=== PATIENT | male | born 1995 | race Two or more races ===

== ENCOUNTER 2022-02-28 14:58 | Emergency (ER) | payer OTHER ==
[~2022-02-28] VITALS: Ht 170.2 cm; Wt 142.9 kg
[2022-02-28 16:01] VITALS: BP 135/70
[2022-02-28] MEDS ORDERED: PRED20TA2 PO (16:57)
[2022-02-28] MEDS ORDERED: ACYC-161 PO (16:57)
== END 2022-02-28 17:09 | disposition home or self-care (01) ==
LOC: ER 14:58
DX: G51.0 Bell's palsy (principal)
CPT/HCPCS: 70450; 93005

== ENCOUNTER 2022-06-29 05:15 | Emergency (ER) | payer OTHER ==
[~2022-06-29] VITALS: Ht 170.2 cm; Wt 146.1 kg
[~2022-06-29 05:15] MED LIST: ACYC-161 PO; PRED20TA2 PO
[2022-06-29] MEDS ORDERED: KETOROLAC TROMETH 60MG/2ML VIAL IM ONE (08:15)
[2022-06-29 08:23] VITALS: BP 134/74
[2022-06-29] MEDS ORDERED: BACL10TA PO (08:48)
[2022-06-29] MEDS ORDERED: IBUP800T27 PO (08:48)
== END 2022-06-29 08:53 | disposition home or self-care (01) ==
LOC: ER 05:15
DX: M54.42 Lumbago with sciatica, left side (principal); Z79.899 Other long term (current) drug therapy
CPT/HCPCS: 96372; 99283; J1885